=== PATIENT | male | born 1950 | race Caucasian/White ===

== ENCOUNTER 2020-03-15 15:54 | Emergency (ER) | payer MEDICARE, OTHER ==
[~2020-03-15] VITALS: Ht 165.1 cm; Wt 70.5 kg
[~2020-03-15 15:54] MED LIST: AMIO200T68 PO; AMIO400T4 PO; AMLO-258 PO; APIX2.5T PO; ATOR10TA84 PO; CALC-1038 PO; DEXA2TAB PO; DIPH25CA85 PO; GLIP2.5T17 PO; HYDR25TA84 PO; INSREG SQ; LISI-660 PO; METO5TAB87 PO; ONDA-104 PO; PANT-31 PO; PHOSLOC PO; SENN-216 PO; VIT1TAB.6 PO
[2020-03-15 15:56] VITALS: BP 137/71
[2020-03-15] MEDS ORDERED: ACETAMINOPHEN 325 MG TABLET PO ONE (18:15)
== END 2020-03-15 20:29 | disposition home or self-care (01) ==
LOC: EMS 15:54
DX: M54.5 Low back pain (principal); I12.0 Hypertensive chronic kidney disease with stage 5 chronic kidney disease or end stage renal disease; N18.6 End stage renal disease; E78.00 Pure hypercholesterolemia, unspecified; Z99.2 Dependence on renal dialysis; Z79.4 Long term (current) use of insulin; Z79.899 Other long term (current) drug therapy